=== PATIENT | male | born 1980 | race Caucasian/White ===

== ENCOUNTER 2018-11-15 16:42 | Emergency (ER) | payer BC, OTHER ==
[~2018-11-15] VITALS: Ht 172.7 cm; Wt 95.3 kg
[~2018-11-15 16:42] MED LIST: CEFP250T2 PO; KETO75CA PO; TMSL.4C PO
[2018-11-15 16:57] LABS: BILIRUBIN,URINE NEGATIVE (NEGATIVE); CLARITY,URINE SLIGHTLY CLOUDY; COLOR,URINE YELLOW; GLUCOSE, URINE (UA) NEGATIVE (NEGATIVE); KETONES,URINE NEGATIVE (NEGATIVE); LEUKOCYTE ESTERASE ,URINE 1+ (NEGATIVE); NITRITE,URINE NEGATIVE (NEGATIVE); PH,URINE 6 (5-9); PROTEIN,URINE 2+ (NEGATIVE); UROBILINOGEN,URINE NORMAL (NORMAL)
[2018-11-15 17:00] LABS: BASOPHILS % (AUTO) 1 % (0-10); EOSINOPHILS # (AUTO) 0.3 10^3/uL (0.0-0.3); EOSINOPHILS % (AUTO) 4 % (0-10); HEMATOCRIT 45 % (40-54); HEMOGLOBIN 15.1 G/DL (13.3-17.7); LYMPHOCYTES % (AUTO) 25 % (12-44); MEAN CORPUSCULAR HEMOGLOBIN 29 PG (25-34); MEAN CORPUSCULAR HGB CONC 34 G/DL (32-36); MEAN CORPUSCULAR VOLUME 85 FL (80-99); MEAN PLATELET VOLUME 10.6 FL (7.4-10.4); MONOCYTES # (AUTO) 0.7 X 10^3 (0.0-1.0); MONOCYTES % (AUTO) 9 % (0-12); NEUTROPHILS # (AUTO) 4.9 X 10^3 (1.8-7.8); NEUTROPHILS % (AUTO) 62 % (42-75); PLATELET COUNT 279 10^3/uL (130-400); RED CELL DISTRIBUTION WIDTH 13.3 % (10.0-14.5); WHITE BLOOD COUNT 7.8 10^3/uL (4.3-11.0)
[2018-11-15] MEDS ORDERED: KETOROLAC 30 MG/ML VIAL IVP ONE (17:00)
[2018-11-15] MEDS ORDERED: ONDANSETRON 4 MG/2 ML (SDV) Z0FRAN IVP ONE (17:00)
--- NOTE | 2018-11-15 17:02 | ED GU-Male ---
General Stated Complaint: URINATING BLOOD Source: patient Exam Limitations: no limitations History of Present Illness Date Seen by Provider: Nov 15, 2018 Time Seen by Provider: 16:49 Initial Comments Patient presents to ER by private conveyance with chief complaint that he has pain on his left flank radiating down to his left groin. Painful urination pressure to urinate but he can't make any urine and dark cloudy brown tinted urine. He had pain similar to this several years ago and turned out to be kidney stones. No vomiting but he does have some nausea. No fevers chills cough shortness of breath chest pain. No history of abdominal surgeries or trauma. Allergies and Home Medications Allergies Coded Allergies: No Known Drug Allergies (Unverified , 03/11/14) Home Medications Cefprozil 250 Mg Tablet, 1 TAB PO BID Prescribed by: CORY BARKER on 03/12/1449 Cephalexin 500 Mg Tablet, 500 MG PO BID Prescribed by: SANDRA IBANEZ on 11/15/181742 Hydrocodone Bit/Acetaminophen 1 Tab Tab, 1-2 EACH PO Q6H PRN for BREAKTHROUGH PAIN Prescribed by: SANDRA IBANEZ on 11/15/181742 Ketoprofen 75 Mg Capsule, 1 EACH PO TID PRN for PAIN Prescribed by: CORY BARKER on 03/12/1448 Ondansetron 4 Mg Tab.rapdis, 4 MG PO Q6H PRN for NAUSEA/VOMITING Prescribed by: SANDRA IBANEZ on 11/15/181742 Tamsulosin HCl 0.4 Mg Cap, 0.4 MG PO HS Prescribed by: SANDRA IBANEZ on 11/15/181742 Tamsulosin Hcl 0.4 Mg Cap, 0.4 MG PO DAILY Prescribed by: CORY BARKER on 03/12/1448 Patient Home Medication List Home Medication List Reviewed: Yes Review of Systems Review of Systems Constitutional: No chills, No diaphoresis EENTM: No ear discharge, No hearing loss Respiratory: No cough, No short of breath Cardiovascular: No chest pain, No edema Gastrointestinal: see HPI, abdominal pain, nausea; No vomiting Genitourinary: denies discharge, denies dysuria Musculoskeletal: No back pain, No joint pain Past Bxbycgn-Qnbvnj-Vnxprv Hx Patient Social History Alcohol Use: Denies Use Recreational Drug Use: No Smoking Status: Never a Smoker Recent Foreign Travel: No Contact w/Someone Who Travel: No Past Medical History Reproductive Disorders: No Sexually Transmitted Disease: No HIV/AIDS: No Adverse Reaction/Blood Tranf: No Physical Exam Vital Signs Vital Signs - First Documented 11/15/18 16:45 Temp 98.0 Pulse 105 Resp 24 B/P (MAP) 155/105 (122) Pulse Ox 98 O2 Delivery Room Air Capillary Refill : Height, Weight, BMI Height: 5'8" Weight: 195lbs. oz. 88.015303cd; BMI Method:Stated General Appearance: WD/WN, mild distress HEENT: PERRL/EOMI, pharynx normal Cardiovascular: normal peripheral pulses, regular rate, rhythm, no edema Respiratory: no respiratory distress, no accessory muscle use Gastrointestinal: normal bowel sounds, non tender, soft Back: normal inspection, no vertebral tenderness; No CVA tenderness (R); CVA tenderness (L) Neurologic/Psychiatric: alert, normal mood/affect Skin: normal color, warm/dry Progress/Results/Core Measures Suspected Sepsis SIRS Temperature: Pulse: Respiratory Rate: Laboratory Tests 11/15/18 16:50: White Blood Count 7.8 Blood Pressure / Mean: Laboratory Tests 11/15/18 16:50: Creatinine 1.06, Platelet Count 279, Total Bilirubin 0.3 Results/Orders Lab Results Laboratory Tests Test 11/15/18 16:50 Range/Units White Blood Count 7.8 4.3-11.0 10^3/uL Red Blood Count 5.22 4.35-5.85 10^6/uL Hemoglobin 15.1 13.3-17.7 G/DL Hematocrit 45 40-54 % Mean Corpuscular Volume 85 80-99 FL Mean Corpuscular Hemoglobin 29 25-34 PG Mean Corpuscular Hemoglobin Concent 34 32-36 G/DL Red Cell Distribution Width 13.3 10.0-14.5 % Platelet Count 279 130-400 10^3/uL Mean Platelet Volume 10.6 H 7.4-10.4 FL Neutrophils (%) (Auto) 62 42-75 % Lymphocytes (%) (Auto) 25 12-44 % Monocytes (%) (Auto) 9 0-12 % Eosinophils (%) (Auto) 4 0-10 % Basophils (%) (Auto) 1 0-10 % Neutrophils # (Auto) 4.9 1.8-7.8 X 10^3 Lymphocytes # (Auto) 2.0 1.0-4.0 X 10^3 Monocytes # (Auto) 0.7 0.0-1.0 X 10^3 Eosinophils # (Auto) 0.3 0.0-0.3 10^3/uL Basophils # (Auto) 0.0 0.0-0.1 10^3/uL Urine Color YELLOW Urine Clarity SLIGHTLY CLOUDY Urine pH 6 5-9 Urine Specific [place] 1.020 1.016-1.022 Urine Protein 2+ H NEGATIVE Urine Glucose (UA) NEGATIVE NEGATIVE Urine Ketones NEGATIVE NEGATIVE Urine Nitrite NEGATIVE NEGATIVE Urine Bilirubin NEGATIVE NEGATIVE Urine Urobilinogen NORMAL NORMAL MG/DL Urine Leukocyte Esterase 1+ H NEGATIVE Urine RBC (Auto) 5+ H NEGATIVE Urine RBC TNTC H /HPF Urine WBC 2-5 /HPF Urine Crystals NONE /LPF Urine Bacteria TRACE /HPF Urine Casts NONE /LPF Urine Mucus NEGATIVE /LPF Urine Culture Indicated YES Sodium Level 137 135-145 MMOL/L Potassium Level 4.0 3.6-5.0 MMOL/L Chloride Level 102 98-107 MMOL/L Carbon Dioxide Level 26 21-32 MMOL/L Anion Gap 9 5-14 MMOL/L Blood Urea Nitrogen 17 7-18 MG/DL Creatinine 1.06 0.60-1.30 MG/DL Estimat Glomerular Filtration Rate > 60 BUN/Creatinine Ratio 16 Glucose Level 86 70-105 MG/DL Calcium Level 9.4 8.5-10.1 MG/DL Corrected Calcium 9.1 8.5-10.1 MG/DL Total Bilirubin 0.3 0.1-1.0 MG/DL Aspartate Amino Transf (AST/SGOT) 21 5-34 U/L Alanine Aminotransferase (ALT/SGPT) 34 0-55 U/L Alkaline Phosphatase 63 40-136 U/L Total Protein 8.2 6.4-8.2 GM/DL Albumin 4.4 3.2-4.5 GM/DL My Orders Orders - SANDRA IBANEZ Ua Culture If Indicated (11/15/18 16:44) Ct Abd/Pelvis Wo(Kidney Stone) (11/15/18 16:54) Cbc With Automated Diff (11/15/18 16:54) Comprehensive Metabolic Panel (11/15/18 16:54) Ketorolac Injection (Toradol Injection) (11/15/18 17:00) Ondansetron Injection (Zofran Injectio (11/15/18 17:00) Urine Culture (11/15/18 16:50) Ceftriaxone For Iv Use (Rocephin For I (11/15/18 17:30) Abdomen/Kub 1view (11/15/18 17:43) Medications Given in ED Current Medications Medications Dose Ordered Sig/Sam Route Start Time Stop Time Status Last Admin Dose Admin Ceftriaxone Sodium 1000 mg/ Sterile Water 10 ml @ 200 mls/hr ONCE ONCE IV 11/15/18 17:30 11/15/18 17:32 DC 11/15/18 17:40 200 MLS/HR Ketorolac Tromethamine 30 mg ONCE ONCE IVP 11/15/18 17:00 11/15/18 17:01 DC 11/15/18 16:59 30 MG Ondansetron HCl 4 mg ONCE ONCE IVP 11/15/18 17:00 11/15/18 17:01 DC 11/15/18 17:01 4 MG Vital Signs/I&O 11/15/18 16:45 Temp 98.0 Pulse 105 Resp 24 B/P (MAP) 155/105 (122) Pulse Ox 98 O2 Delivery Room Air Capillary Refill : Progress Note : Time: 17:00 Progress Note Toradol and Zofran. Urinalysis and CT scan of the abdomen pelvis. Diagnostic Imaging Diagonstic Imaging: CT Plain Films/CT/US/NM/MRI: abdomen, pelvis Comments Mid left ureteral calculi approximate 4 mm in greatest diameter. Diverticulosis without diverticulitis. Direct left inguinal hernia, small without associated intestine or obstruction. No evidence of free fluid, inflammation, organomegaly. Liver, spleen, stomach, pancreas, gallbladder unremarkable in appearance. Reviewed: Reviewed by Me Diagonstic Imaging: Xray Plain Films/CT/US/NM/MRI: abdomen (KUB 1) Comments Small 3-5 mm opacity overlying the shadow of the left ureter proximal third portion consistent with ureteral calculus. Nonspecific bowel gas pattern. Reviewed: Reviewed by Me Departure Impression Primary Impression: Left ureteral calculus Disposition: HOME, SELF-CARE Condition: Stable Departure-Patient Inst. Decision time for Depature: 17:33 Referrals: NO,LOCAL PHYSICIAN (PCP) Primary Care Physician ELOY MENDEZ MD Patient Instructions: Kidney Stones (DC) Add. Discharge Instructions: Ibuprofen 800 mg every 8 hours as needed for pain. Tylenol 650 mg every 8 hours as needed for pain. Hydrocodone one to 2 tablets every 6 hours as needed for breakthrough pain. Take Keflex one capsule twice a day for the next week. Take the Flomax one capsule at night until you pass the kidney stone. Strain your urine until you see if the stones pass. Sometimes the symptoms will go away and you will not catch a stone because of they breakup into a fine sand. Expect resolution of your symptoms usually one to 2 days after passing your stone. Zofran 1 tablet every 6 hours as needed for nausea or vomiting. Follow-up with Dr. Mendez, urology as needed by calling for an appointment. Scripts Ondansetron (Ondansetron Odt) 4 Mg Tab.rapdis 4 MG PO Q6H PRN for NAUSEA/VOMITING, #10 TAB 0 Refills Prov: SANDRA IBANEZ 11/15/18 Tamsulosin HCl (Flomax) 0.4 Mg Cap 0.4 MG PO HS for 7 Days, #7 CAP 0 Refills Prov: SANDRA IBANEZ 11/15/18 Hydrocodone Bit/Acetaminophen (Hydrocodone/Acetaminophen 5/325mg Tablet) 1 Tab Tab 1-2 EACH PO Q6H PRN for BREAKTHROUGH PAIN MDD 10, #14 TAB 0 Refills Prov: SANDRA IBANEZ 11/15/18 Cephalexin (Cephalexin) 500 Mg Tablet 500 MG PO BID for 7 Days, #14 TAB 0 Refills Prov: SANDRA IBANEZ 11/15/18 Work/School Note: Work Release Form Date Seen in the Emergency Department: Nov 15, 2018 Return to Work: Nov 17, 2018 Restrictions: No Restrictions Copy Copies To 1: ELOY MENDEZ MD, TITUS J Nov 15, 2018 17:02
[2018-11-15 17:07] LABS: BACTERIA,URINE TRACE /HPF; RBC,URINE TNTC /HPF
[2018-11-15 17:27] LABS: ALANINE AMINOTRANSFERASE 34 U/L (0-55); ALBUMIN 4.4 GM/DL (3.2-4.5); ALKALINE PHOSPHATASE 63 U/L (40-136); BILIRUBIN,TOTAL 0.3 MG/DL (0.1-1.0); BUN/CREATININE RATIO 16; CALCIUM 9.4 MG/DL (8.5-10.1); CARBON DIOXIDE 26 MMOL/L (21-32); CHLORIDE 102 MMOL/L (98-107); CREATININE SERUM 1.06 MG/DL (0.60-1.30); GFR ESTIMATED > 60; GLUCOSE 86 MG/DL (70-105); SODIUM 137 MMOL/L (135-145); TOTAL PROTEIN 8.2 GM/DL (6.4-8.2)
[2018-11-15] MEDS ORDERED: cefTRIAXone FOR IV USE 1,000 MG in WATER (STERILE) FOR INJECTION 10 ML IV ONE (17:30)
--- NOTE | 2018-11-15 17:33 | Diagnostic Imaging Report ---
PROCEDURE: CT urinary tract, rule out kidney stone. TECHNIQUE: Multiple contiguous axial images were obtained through the abdomen and pelvis without the use of intravenous contrast. Auto Exposure Controls were utilized during the CT exam to meet ALARA standards for radiation dose reduction. INDICATION: Left flank pain with hematuria. FINDINGS: Lung bases are clear. Liver is unremarkable. Gallbladder is present. Pancreas is normal. Spleen is not enlarged. Adrenals are normal. There is a 3 mm stone in the left proximal ureter causing mild hydronephrosis of the left kidney. Right kidney is normal. Small bowel is not dilated. There is some diverticuli of the colon but no evidence of diverticulitis. IMPRESSION: 3 mm obstructing calculus in the left proximal ureter. Dictated by: Dictated on workstation # [id number]
[2018-11-15] MEDS ORDERED: TAMS0.4C98 PO (17:43)
[2018-11-15] MEDS ORDERED: CEPH500T PO (17:43)
[2018-11-15] MEDS ORDERED: ACHD5005 PO (17:43)
[2018-11-15] MEDS ORDERED: ONDA4TAB11 PO (17:43)
--- NOTE | 2018-11-15 17:58 | Diagnostic Imaging Report ---
INDICATION: Left nephrolithiasis. EXAMINATION: Single view of the abdomen was obtained. FINDINGS: There is a 2.5 mm stone projecting over the left mid ureter between the left third and fourth transverse processes. Bowel gas pattern is normal. IMPRESSION: Left ureterolithiasis. Dictated by: Dictated on workstation # [id number]
[2018-11-15 18:06] VITALS: BP 136/92
== END 2018-11-15 18:06 | disposition home or self-care (01) ==
LOC: EDUNIT# 16:42 → ER 16:43
DX: N20.1 Calculus of ureter (principal)
CPT/HCPCS: 36415; 74018; 74176; 80053; 81000; 85025; 87088; 96365; 96375

== ENCOUNTER → 2018-11-20 | Outpatient (CLI) | payer BC ==
[~2018-11-20] MED LIST changes: +ACHD5005 PO; +CEPH500T PO; +ONDA4TAB11 PO; +TAMS0.4C98 PO
--- NOTE | 2018-11-20 20:32 | Diagnostic Imaging Report ---
EXAMINATION: Supine abdomen at 3:03 p.m. INDICATION: Left ureteral stone. FINDINGS: The prior exam of 11/14/2018 noted a 2.5 mm calculus projected over the left mid ureter between the transverse processes of L3 and L4. On this study, the calculus now overlies the left transverse process of L4. The overall appearance of the abdomen has not changed significantly otherwise. IMPRESSION: There has been slight caudal migration of the calculus overlying the left ureter. The calculus is now at the level of the left transverse process of L4. Dictated by: Dictated on workstation # [id number]
== END ==
LOC: RAD 14:52
PROVIDERS: ATTEND Urology
DX: N20.1 Calculus of ureter (principal)
CPT/HCPCS: 74018

== ENCOUNTER → 2018-11-26 | Outpatient (CLI) | payer BC ==
--- NOTE | 2018-11-26 14:19 | Diagnostic Imaging Report ---
INDICATION: Left proximal ureteral stone. TIME OF EXAMINATION: 12:17 PM. COMPARISON: 11/20/2018. FINDINGS: The previously noted calcific density in the left ureter appears to be in similar position, overlying the left transverse process of L4. No other radiopaque urinary tract calculi are seen. The bowel gas pattern is unremarkable. IMPRESSION: Unchanged position of the left mid ureteric calculus when compared to the examination of 6 days earlier. Dictated by: Dictated on workstation # [id number]
== END ==
LOC: RAD 12:00
PROVIDERS: ATTEND Urology
DX: N20.1 Calculus of ureter (principal)
CPT/HCPCS: 74018

== ENCOUNTER 2018-11-27 06:07 | Outpatient (CLI) | payer BC ==
[~2018-11-27] VITALS: Ht 172.7 cm; Wt 95.3 kg
--- NOTE | 2018-11-28 12:48 | Anesthesia-General Post-Op ---
General Patient Condition Mental Status/LOC: Same as Preop Cardiovascular: Satisfactory Nausea/Vomiting: Absent Respiratory: Satisfactory Pain: Controlled Complications: Absent Post Op Complications Complications None Follow Up Care/Instructions Patient Instructions None needed. Anesthesia/Patient Condition Patient Condition Patient is doing well, no complaints, stable vital signs, no apparent adverse anesthesia problems. No complications reported per nursing. ROBINA AGRAWAL CRNA Nov 28, 2018 12:48
== END 2018-11-27 10:08 | disposition home or self-care (01) ==
LOC: PREOP 06:07
PROVIDERS: ATTEND Urology
DX: Z01.818 Encounter for other preprocedural examination (principal)

== ENCOUNTER 2019-02-15 18:27 | Emergency (ER) | payer BC ==
[~2019-02-15] VITALS: Ht 172.7 cm; Wt 90.7 kg
--- NOTE | 2019-02-15 18:36 | ED Abdominal Pain ---
General Chief Complaint: Abdominal/GI Problems Stated Complaint: LOWER ABD PAIN Source of Information: Patient Exam Limitations: No Limitations History of Present Illness Date Seen by Provider: Feb 15, 2019 Time Seen by Provider: 18:34 Initial Comments To ER with reports of sudden onset of suprapubic abdominal pain about 45 minutes ago while he was out eating dinner with his . No vomiting. He did have a couple of episodes of diarrhea this morning. He did have one episode of dysuria prior to arrival, felt the need to urinate but only dribbles a little bit. History of ureteral stones on the left back in November of this year. Not on any medications. Timing/Duration: 1-2 Days Severity/Quality: Moderate Location: Suprapubic Radiation: No Radiation Activities at Onset: None Allergies and Home Medications Allergies Coded Allergies: No Known Drug Allergies (Unverified , 11/27/18) Home Medications Cephalexin 500 Mg Tablet, 500 MG PO BID Prescribed by: SANDRA IBANEZ on 11/15/181742 Hydrocodone Bit/Acetaminophen 1 Tab Tab, 1-2 EACH PO Q6H PRN for BREAKTHROUGH PAIN Prescribed by: SANDRA IBANEZ on 11/15/181742 Oxycodone HCl/Acetaminophen 1 Each Tablet, 1 TAB PO Q4H PRN for PAIN-SEVERE Prescribed by: EKATERINA MUNOZ on 02/15/192005 Tamsulosin HCl 0.4 Mg Cap, 0.4 MG PO HS Prescribed by: SANDRA IBANEZ on 11/15/181742 Tamsulosin HCl 0.4 Mg Cap, 0.4 MG PO DAILY Prescribed by: EKATERINA MUNOZ on 02/15/192005 Patient Home Medication List Home Medication List Reviewed: Yes Review of Systems Review of Systems Constitutional: see HPI EENTM: No Symptoms Reported Respiratory: No Symptoms Reported Cardiovascular: No Symptoms Reported Gastrointestinal: See HPI, Abdominal Pain, Diarrhea; Denies Nausea Genitourinary: See HPI, Pain, Urgency Musculoskeletal: no symptoms reported Skin: no symptoms reported Psychiatric/Neurological: No Symptoms Reported Endocrine: No Symptoms Reported Hematologic/Lymphatic: No Symptoms Reported Past Ffwsjia-Tofeqs-Jogjca Hx Patient Social History 2nd Hand Smoke Exposure: No Recent Foreign Travel: No Contact w/Someone Who Travel: No Recent Hopitalizations: No Seasonal Allergies Seasonal Allergies: No Past Medical History Surgeries: No Respiratory: No Cardiac: No Neurological: No Reproductive Disorders: No Sexually Transmitted Disease: No HIV/AIDS: No Genitourinary: Yes Kidney Stones Gastrointestinal: Yes Gastroesophageal Reflux, Chronic Constipation Musculoskeletal: No Endocrine: No HEENT: Yes (CONTACTS/GLASSES) Loss of Vision: Denies Hearing Impairment: Denies Cancer: No Psychosocial: No Integumentary: No Blood Disorders: No Adverse Reaction/Blood Tranf: No (N/A) Physical Exam Vital Signs Vital Signs - First Documented 02/15/19 18:30 Temp 97.3 Pulse 88 Resp 20 B/P (MAP) 161/119 (133) Pulse Ox 99 Capillary Refill : Height/Weight/BMI Height: 5'8.00" Weight: 210lbs. 0.0oz. 95.100474oa; 31.9 BMI Method:Stated General Appearance: WD/WN, mild distress (Appears in pain) HEENT: PERRL/EOMI, normal ENT inspection Respiratory: normal breath sounds, no respiratory distress, no accessory muscle use Gastrointestinal: normal bowel sounds, soft, tenderness (suprapubic) Back: CVA tenderness (R), CVA tenderness (L) Neurologic/Psychiatric: alert, normal mood/affect, oriented x 3 Skin: normal color, warm/dry Progress/Results/Core Measures Results/Orders Lab Results Laboratory Tests Test 02/15/19 18:35 02/15/19 19:20 Range/Units White Blood Count 8.2 4.3-11.0 10^3/uL Red Blood Count 5.44 4.35-5.85 10^6/uL Hemoglobin 15.9 13.3-17.7 G/DL Hematocrit 46 40-54 % Mean Corpuscular Volume 85 80-99 FL Mean Corpuscular Hemoglobin 29 25-34 PG Mean Corpuscular Hemoglobin Concent 35 32-36 G/DL Red Cell Distribution Width 14.3 10.0-14.5 % Platelet Count 257 130-400 10^3/uL Mean Platelet Volume 11.1 H 7.4-10.4 FL Neutrophils (%) (Auto) 59 42-75 % Lymphocytes (%) (Auto) 29 12-44 % Monocytes (%) (Auto) 8 0-12 % Eosinophils (%) (Auto) 4 0-10 % Basophils (%) (Auto) 1 0-10 % Neutrophils # (Auto) 4.9 1.8-7.8 X 10^3 Lymphocytes # (Auto) 2.4 1.0-4.0 X 10^3 Monocytes # (Auto) 0.6 0.0-1.0 X 10^3 Eosinophils # (Auto) 0.4 H 0.0-0.3 10^3/uL Basophils # (Auto) 0.0 0.0-0.1 10^3/uL Sodium Level 138 135-145 MMOL/L Potassium Level 4.3 3.6-5.0 MMOL/L Chloride Level 104 98-107 MMOL/L Carbon Dioxide Level 24 21-32 MMOL/L Anion Gap 10 5-14 MMOL/L Blood Urea Nitrogen 12 7-18 MG/DL Creatinine 1.19 0.60-1.30 MG/DL Estimat Glomerular Filtration Rate > 60 BUN/Creatinine Ratio 10 Glucose Level 95 70-105 MG/DL Calcium Level 9.7 8.5-10.1 MG/DL Urine Color YELLOW Urine Clarity SL CLOUDY Urine pH 5 5-9 Urine Specific [place] 1.030 H 1.016-1.022 Urine Protein 2+ H NEGATIVE Urine Glucose (UA) NEGATIVE NEGATIVE Urine Ketones NEGATIVE NEGATIVE Urine Nitrite NEGATIVE NEGATIVE Urine Bilirubin NEGATIVE NEGATIVE Urine Urobilinogen NORMAL NORMAL MG/DL Urine Leukocyte Esterase 1+ H NEGATIVE Urine RBC (Auto) 5+ H NEGATIVE Urine RBC 25-50 H /HPF Urine WBC 0-2 /HPF Urine Squamous Epithelial Cells 0-2 /HPF Urine Crystals NONE /LPF Urine Bacteria TRACE /HPF Urine Casts PRESENT /LPF Urine Hyaline Casts RARE /LPF Urine Mucus MODERATE H /LPF Urine Culture Indicated NO My Orders Orders - EKATERINA MUNOZ SHIPPING AND RECEIVING OPERATOR Cbc With Automated Diff (02/15/19 18:28) Basic Metabolic Panel (02/15/19 18:28) Ua Culture If Indicated (02/15/19 18:28) Ed Iv/Invasive Line Start (02/15/19 18:28) Ketorolac Injection (Toradol Injection) (02/15/19 18:45) Fentanyl Injection (Sublimaze Injection (02/15/19 18:45) Ct Abd/Pelvis Wo(Kidney Stone) (02/15/19 18:33) Abdomen/Kub 1view (02/15/19 18:33) Lactated Ringers (Lr 1000 Ml Iv Solution (02/15/19 19:00) Rx-Hydrocodone/Apap 5-325 Mg (Rx-Vicodin (02/15/19 19:00) Morphine Injection (Morphine Injection (02/15/19 19:43) Medications Given in ED Current Medications Medications Dose Ordered Sig/Sam Route Start Time Stop Time Status Last Admin Dose Admin Acetaminophen/ Hydrocodone Bitart 1 ea Q4H PRN PO 02/15/19 19:00 02/15/19 19:11 1 EA Fentanyl Citrate 50 mcg ONCE ONCE IVP 02/15/19 18:45 02/15/19 18:46 DC 02/15/19 18:41 50 MCG Ketorolac Tromethamine 15 mg ONCE ONCE IVP 02/15/19 18:45 02/15/19 18:46 DC 02/15/19 18:41 15 MG Vital Signs/I&O 02/15/19 18:30 Temp 97.3 Pulse 88 Resp 20 B/P (MAP) 161/119 (133) Pulse Ox 99 Departure Impression Primary Impression: Left ureteral stone Disposition: HOME, SELF-CARE Condition: Stable Departure-Patient Inst. Decision time for Depature: 18:58 Referrals: NO,LOCAL PHYSICIAN (PCP) Primary Care Physician ELOY MENDEZ MD Patient Instructions: Kidney Stones (DC) Add. Discharge Instructions: 1. Return to Er for any concerns All discharge instructions reviewed with patient and/or family. Voiced understanding. Scripts Oxycodone HCl/Acetaminophen (Percocet 5-325 mg Tablet) 1 Each Tablet 1 TAB PO Q4H PRN for PAIN-SEVERE MDD 6 TABS for 7 Days, #14 TAB Prov: KEATERINA MUNOZ SHIPPING AND RECEIVING OPERATOR 02/15/19 Tamsulosin HCl (Flomax) 0.4 Mg Cap 0.4 MG PO DAILY, #14 CAP Prov: EKATERINA MUNOZ SHIPPING AND RECEIVING OPERATOR 02/15/19 EKATERINA MUNOZ SHIPPING AND RECEIVING OPERATOR Feb 15, 2019 18:36
[2019-02-15 18:39] LABS: BASOPHILS % (AUTO) 1 % (0-10); EOSINOPHILS # (AUTO) 0.4 10^3/uL (0.0-0.3); EOSINOPHILS % (AUTO) 4 % (0-10); HEMATOCRIT 46 % (40-54); HEMOGLOBIN 15.9 G/DL (13.3-17.7); LYMPHOCYTES # (AUTO) 2.4 X 10^3 (1.0-4.0); LYMPHOCYTES % (AUTO) 29 % (12-44); MEAN CORPUSCULAR HEMOGLOBIN 29 PG (25-34); MEAN CORPUSCULAR HGB CONC 35 G/DL (32-36); MEAN CORPUSCULAR VOLUME 85 FL (80-99); MEAN PLATELET VOLUME 11.1 FL (7.4-10.4); MONOCYTES # (AUTO) 0.6 X 10^3 (0.0-1.0); MONOCYTES % (AUTO) 8 % (0-12); NEUTROPHILS # (AUTO) 4.9 X 10^3 (1.8-7.8); NEUTROPHILS % (AUTO) 59 % (42-75); PLATELET COUNT 257 10^3/uL (130-400); RED CELL DISTRIBUTION WIDTH 14.3 % (10.0-14.5); WHITE BLOOD COUNT 8.2 10^3/uL (4.3-11.0)
[2019-02-15] MEDS ORDERED: fentaNYL INJECTION 100 MCG/2 ML AMP IVP ONE (18:45)
[2019-02-15] MEDS ORDERED: KETOROLAC 30 MG/ML VIAL IVP ONE (18:45)
--- NOTE | 2019-02-15 18:56 | Diagnostic Imaging Report ---
EXAMINATION: AP abdomen. INDICATION: Pelvic pain with history of kidney stones. COMPARISON: KUB, 11/26/2018. FINDINGS: When compared to the prior examination, there is a new radiodensity demonstrated within the pelvis at the expected level of the left ureterovesicular junction. There are no stones projecting over the level of the renal shadows. The bowel gas pattern appears nonobstructed. IMPRESSION: Suspected distal left ureteral stone just above the left UVJ. Dictated by: Dictated on workstation # [id number]
--- NOTE | 2019-02-15 18:59 | Diagnostic Imaging Report ---
PROCEDURE: CT urinary tract, rule out kidney stone. TECHNIQUE: Multiple contiguous axial images were obtained through the abdomen and pelvis without the use of intravenous contrast. Auto Exposure Controls were utilized during the CT exam to meet ALARA standards for radiation dose reduction. INDICATION: Pelvic pain. History of kidney stones. COMPARISON: Correlation made with a KUB performed earlier in the same day and to prior CT study from November 15, 2018. FINDINGS: Lung bases demonstrate some minimal dependent atelectasis and otherwise are clear. The liver is steatotic without focal abnormality. Gallbladder is nondistended. There is no biliary dilatation. The pancreas appears normal. Spleen is unremarkable. There is a stable splenule. There is no adrenal mass. The right kidney is nonobstructed. There is moderate left-sided hydronephrosis and hydroureter which is secondary to a 4 mm distal left ureteral stone which is just above the left ureterovesicular junction. There is no stone within the urinary bladder. Small and large bowel are normal in caliber without evidence of obstruction. Uncomplicated diverticulosis is noted. There is no appendicitis. There are no findings of free air, free fluid, or evidence of abscess. There is no pathologic adenopathy. The aorta is normal in caliber. There is no acute or suspicious osseous abnormality. IMPRESSION: 1. Moderate left hydronephrosis and hydroureter secondary to a 4 mm stone within the distal left ureter just above the left ureterovesicular junction. 2. Hepatic steatosis. 3. Uncomplicated diverticulosis. Dictated by: Dictated on workstation # [id number]
[2019-02-15] MEDS ORDERED: LACTATED RINGERS 1,000 ML IV SCH (19:00)
[2019-02-15] MEDS ORDERED: RX-HYDROCODONE/APAP 5/325 MG #4 TAB PK PO PRN (19:00)
[2019-02-15 19:02] LABS: BUN/CREATININE RATIO 10; CALCIUM 9.7 MG/DL (8.5-10.1); CARBON DIOXIDE 24 MMOL/L (21-32); CHLORIDE 104 MMOL/L (98-107); CREATININE SERUM 1.19 MG/DL (0.60-1.30); GFR ESTIMATED > 60; GLUCOSE 95 MG/DL (70-105); POTASSIUM 4.3 MMOL/L (3.6-5.0); SODIUM 138 MMOL/L (135-145)
[2019-02-15 19:27] LABS: BILIRUBIN,URINE NEGATIVE (NEGATIVE); GLUCOSE, URINE (UA) NEGATIVE (NEGATIVE); KETONES,URINE NEGATIVE (NEGATIVE); LEUKOCYTE ESTERASE ,URINE 1+ (NEGATIVE); NITRITE,URINE NEGATIVE (NEGATIVE); PH,URINE 5 (5-9); PROTEIN,URINE 2+ (NEGATIVE); UROBILINOGEN,URINE NORMAL (NORMAL)
[2019-02-15 19:28] LABS: COLOR,URINE YELLOW
[2019-02-15 19:31] LABS: CLARITY,URINE SL CLOUDY
[2019-02-15 19:34] LABS: BACTERIA,URINE TRACE /HPF; HYALINE CASTS, URINE RARE /LPF; RBC,URINE 25-50 /HPF; SQUAMOUS EPITHELIAL CELL,UR 0-2 /HPF; WBC,URINE 0-2 /HPF
[2019-02-15] MEDS ORDERED: morphine INJ 10 MG/ML 1ML (SYR OR VIAL) IVP STA (19:43)
[2019-02-15] MEDS ORDERED: TAMS0.4C98 PO (20:06)
[2019-02-15] MEDS ORDERED: OXYC1TAB87 PO (20:06)
[2019-02-15 20:10] VITALS: BP 130/94
== END 2019-02-15 20:12 | disposition home or self-care (01) ==
LOC: ER 18:27 → EDUNIT# 18:27 → ER 20:12
DX: N13.2 Hydronephrosis with renal and ureteral calculous obstruction (principal); K21.9 Gastro-esophageal reflux disease without esophagitis; Z87.19 Personal history of other diseases of the digestive system
CPT/HCPCS: 36415; 74018; 74176; 80048; 81000; 85025; 96374; 96375

== ENCOUNTER → 2019-02-21 | Outpatient (CLI) | payer BC ==
[~2019-02-21] MED LIST changes: +OXYC1TAB87 PO
--- NOTE | 2019-02-21 14:34 | Diagnostic Imaging Report ---
INDICATION: Left ureteral stone. TIME OF EXAM: 01:28 p.m. Correlation is made with CT and KUB performed on 02/15/2019. FINDINGS: Calcific density in the left pelvis in the distribution of the distal left ureter persists and is in similar location to study performed six days earlier. No other radiopaque urinary tract calculi are seen. The bowel gas pattern is unremarkable. IMPRESSION: No significant change in position of suspected distal left ureteral calculus when compared with prior imaging from 02/15/2019. Dictated by: Dictated on workstation # [id number]
== END ==
LOC: RAD 13:11
PROVIDERS: ATTEND Urology
DX: N20.1 Calculus of ureter (principal)
CPT/HCPCS: 74018

== ENCOUNTER 2019-03-05 06:11 | Day surgery (SDC) | payer BC ==
[2019-03-05] VITALS (9 sets, daily range): BP systolic 106–145; BP diastolic 73–100
[~2019-03-05] VITALS: Ht 172.7 cm; Wt 98.9 kg
[2019-03-05] MEDS ORDERED: MIDAZOLAM 2 MG/2 ML (VERSED) VIAL ONE (06:46)
[2019-03-05] MEDS ORDERED: fentaNYL INJECTION 100 MCG/2 ML AMP ONE (06:46)
[2019-03-05] MEDS ORDERED: KETOROLAC 30 MG/ML VIAL ONE (06:46)
[2019-03-05] MEDS ORDERED: SEVOFLURANE (ULTANE) 15 ML INHAL SOLN ONE ×3 (06:46→08:22)
[2019-03-05] MEDS ORDERED: proPOfol 200 MG/20 ML (DIPRIVAN) VIAL IV ONE ×2 (06:46→08:25)
[2019-03-05] MEDS ORDERED: DEXAMETHASONE 10 MG/ML (DECADRON) 1 ML VIAL ONE (06:46)
[2019-03-05] MEDS ORDERED: LIDOCAINE PF 2% 5 ML (XYLOCAINE) VIAL ONE (06:46)
[2019-03-05] MEDS ORDERED: ONDANSETRON 4 MG/2 ML (SDV) Z0FRAN ONE (06:46)
[2019-03-05] MEDS ORDERED: FUROSEMIDE 40 MG/4 ML INJ (LASIX) ONE (06:46)
[2019-03-05] MEDS ORDERED: LACTATED RINGERS 1,000 ML IV PRN (07:00)
[2019-03-05] MEDS ORDERED: cefTRIAXone FOR IV USE 1,000 MG in WATER (STERILE) FOR INJECTION 10 ML IV ONE (07:00)
[2019-03-05] MEDS ORDERED: TAMS0.4C98 PO (07:10)
[2019-03-05] MEDS: LACTATED RINGERS 1,000 ML IV PRN ×2 (07:10→08:11)
--- NOTE | 2019-03-05 07:14 | Progress Note-Pre Operative ---
Pre-Operative Progress Note H&P Reviewed The H&P was reviewed, patient examined and no changes noted. Date Seen by Provider: Mar 05, 2019 Time Seen by Provider: 07:14 Date H&P Reviewed: Mar 05, 2019 Time H&P Reviewed: 07:14 Pre-Operative Diagnosis: LT DISTAL URETERAL STONE ELOY MENDEZ MD Mar 05, 2019 07:14
[2019-03-05] MEDS ORDERED: ROCURONIUM 10 MG/ML 5 ML SYRINGE IV ONE (08:06)
[2019-03-05] MEDS ORDERED: morphine INJ 10 MG/ML 1ML (SYR OR VIAL) ONE (08:47)
--- NOTE | 2019-03-05 08:51 | Diagnostic Imaging Report ---
Indication: Ureteral stone. Findings: Single view abdomen was obtained. The bowel gas pattern is nonspecific. No definite abnormal calcifications are appreciated. Impression: No definite residual stone. Dictated by: Dictated on workstation # [id number]
[2019-03-05] MEDS ORDERED: morphine INJ 10 MG/ML 1ML (SYR OR VIAL) IVP ONE (09:00)
[2019-03-05] MEDS ORDERED: MEPERIDINE (DEMEROL) INJ 50 MG/ML IVP ONE (09:00)
[2019-03-05] MEDS ORDERED: MEPERIDINE (DEMEROL) INJ 50 MG/ML ONE (09:00)
[2019-03-05] MEDS ORDERED: ONDANSETRON 4 MG/2 ML (SDV) Z0FRAN IVP PRN (09:00)
[2019-03-05] MEDS ORDERED: PHEN-640 PO (09:02)
[2019-03-05] MEDS ORDERED: SULF1TAB35 PO (09:02)
--- NOTE | 2019-03-05 09:06 | Progress Note-Post Operative ---
Post-Operative Progess Note Surgeon (s)/Staff Electrical Engineer (s) Surgeon ELOY MENDEZ MD Staff Electrical Engineer: NONE Pre-Operative Diagnosis LT DISTAL URETERAL STONE Post-Operative Diagnosis SAME Procedure & Operative Findings Date of Procedure 03/05/19 Procedure Performed/Findings LT URETEROSCOPY WITH STONE BASKET Anesthesia Type GENERAL Estimated Blood Loss Estimated blood loss (mL): NONE Specimens/Packing Specimens Removed LT URETERAL STONE Packing: NONE ELOY MENDEZ MD Mar 05, 2019 09:06
--- NOTE | 2019-03-05 09:07 | Discharge Inst-Urology ---
Discharge Inst-Urology Reconcile Patient Problems Problems Reviewed?: Yes Patient Instructions/Follow Up Plan/Assessment/Instructions Please make appointment to been seen in office in 2 weeks. Stone for analysis post seen by patient Increase oral fluids for 48 hours and then as needed. Diet and Activity as tolerated. If questions or concerns contact your physician Or seek help at emergency department. ELOY MENDEZ MD Mar 05, 2019 09:07
[2019-03-05] MEDS ORDERED: PHENAZOPYRIDINE 100 MG (PYRIDIUM) TABLET ONE (09:31)
[2019-03-05] MEDS ORDERED: PHENAZOPYRIDINE 100 MG (PYRIDIUM) TABLET PO ONE (10:00)
--- NOTE | 2019-03-05 13:41 | Anesthesia-General Post-Op ---
General Patient Condition Mental Status/LOC: Same as Preop Cardiovascular: Satisfactory Nausea/Vomiting: Absent Respiratory: Satisfactory Pain: Controlled Complications: Absent Post Op Complications Complications None Follow Up Care/Instructions Patient Instructions None needed. Anesthesia/Patient Condition Patient Condition Patient is doing well, no complaints, stable vital signs, no apparent adverse anesthesia problems. No complications reported per nursing. JUDITH MOSQUEDA CRNA Mar 05, 2019 13:41
--- NOTE | 2019-03-05 13:44 | OPERATIVE REPORT ---
DATE OF SERVICE: 03/05/2019 PREOPERATIVE DIAGNOSIS: Left distal ureteral stone. POSTOPERATIVE DIAGNOSIS: Left distal ureteral stone. OPERATION PERFORMED: Left ureteroscopy with stone basket. SURGEON: Alan Mendez MD ANESTHESIA: General. COMPLICATIONS: None. DESCRIPTION OF PROCEDURE: Under satisfactory general anesthesia, the patient in lithotomy position, genitalia were prepped and draped in the usual sterile fashion. Cystoscope was introduced under vision. The anterior urethra was normal. The prostate was nonobstructing. Bladder neck was open. The bladder was inspected and was normal except for sluggish efflux on the left side. Using the foroblique lens, I dilated the left ureteral orifice intramural portion to accommodate a 6.9 [place] semi-rigid ureteroscope, visualized the stone that was floating, probably this impacted with the dilatation, so I engaged it with a 3-[place] basket and extracted it completely. I reinserted the cystoscope to empty the bladder. The patient tolerated the procedure and anesthesia well and was sent to recovery room in stable condition. PLAN: Work him up for stone prevention because of his age and family history. Job ID: [id number] DocumentID: [id number] Dictated Date: 03/05/2019 08:46:47 Impregnator Helper Date: 03/05/2019 13:43:09 Dictated By: ALAN MENDEZ MD
== END 2019-03-05 10:35 | disposition home or self-care (01) ==
LOC: SDC 06:11
PROVIDERS: ATTEND Urology
DX: N20.1 Calculus of ureter (principal)
CPT/HCPCS: 74018; 87081